=== PATIENT | male | born 1985 | race African-American/Black ===

== ENCOUNTER 2018-03-23 12:39 | Emergency (ER) | payer SELFPAY ==
--- NOTE | 2018-03-23 12:51 | ER Document Report ---
ED Medical Screen (RME) - General Chief Complaint: Abdominal Pain Stated Complaint: ABDOMINAL PAIN Time Seen by Provider: 03/23/18 12:46 Notes: RAPID MEDICAL EVALUATION DISCLOSURE I have seen this patient as part of a Rapid Medical Evaluation and, if applicable, placed any initially appropriate orders. The patient will be seen and fully evaluated, including a full history and physical exam, by a provider ( in Main ED or Fast Track) when a room becomes available. 32-year-old male here with complaints diarrhea nausea lower abdominal pain dysuria. Patient cannot tell me how long this is been going on as he is lethargic and somewhat difficult to arouse. Family report that his friends called them about his issues today. EXAM Suprapubic tenderness No other abdominal tenderness Somewhat lethargic TRAVEL OUTSIDE OF THE [place] IN LAST 30 DAYS: No - Related Data Allergies/Adverse Reactions: penicillin V potassium [From [employer]] Allergy (Mild, Verified 03/23/18 12:42) unsure Sulfa (Sulfonamide Antibiotics) Allergy (Verified 03/23/18 12:42) unsure Past Medical History - Past Medical History Cardiac Medical History: Reports: Hx Hypertension Pulmonary Medical History: Reports: Hx Bronchitis, Hx COPD Musculoskeltal Medical History: Denies Hx Arthritis, Denies Hx Gout Traumatic Medical History: Reports: Hx Fractures - right ankle 2 months ago Past Surgical History: Reports: Hx Kidney (Renal Surgery) - KIDNEY BIOPSY - Immunizations Immunizations up to date: Yes Hx Diphtheria, Pertussis, Tetanus Vaccination: Yes Physical Exam - Vital signs Vitals: Temp Pulse Resp BP Pulse Ox 97.9 F 78 18 152/94 H 100 03/23/18 12:44 03/23/18 12:44 03/23/18 12:44 03/23/18 12:44 03/23/18 12:44 Course - Vital Signs Vital signs: Temp Pulse Resp BP Pulse Ox 97.9 F 78 18 152/94 H 100 03/23/18 12:44 03/23/18 12:44 03/23/18 12:44 03/23/18 12:44 03/23/18 12:44
[2018-03-23] MEDS ORDERED: NORMAL SALINE 1000 ML 1,000 ML IV ONE (14:29)
[2018-03-23 16:01] LABS: ABSOLUTE BASOPHILS # (AUTO) 0.1 10^3/uL (0.0-0.2); ABSOLUTE LYMPHOCYTES (AUTO) 0.9 10^3/uL (0.5-4.7); ABSOLUTE MONOCYTES (AUTO) 0.8 10^3/uL (0.1-1.4); ABSOLUTE NEUT (AUTO) 11.4 10^3/uL (1.7-8.2); BASOPHILS % (AUTO) 0.6 % (0-2); EOSINOPHILS % (AUTO) 0.3 % (0-6); HEMATOCRIT 50.9 % (37.9-51.0); LYMPHOCYTES % (AUTO) 6.9 % (13-45); MEAN CORPUSCULAR HGB CONC 33.4 g/dL (32.0-36.0); MEAN CORPUSCULAR VOLUME 87 fl (80-97); PLATELET COUNT 330 10^3/uL (150-450); RED BLOOD COUNT 5.87 10^6/uL (4.35-5.55); RED CELL DISTRIBUTION WIDTH 14.6 % (11.5-14.0); SEGMENTED NEUTROPHILS % (AUTO) 86.2 % (42-78); TOTAL CELLS COUNTED % (AUTO) 100 %; WHITE BLOOD COUNT 13.3 10^3/uL (4.0-10.5)
[2018-03-23 16:11] LABS: ALANINE AMINOTRANSFERASE 93 U/L (21-72); ALBUMIN 4.2 g/dL (3.5-5.0); ALKALINE PHOSPHATASE 109 U/L (38-126); ANION GAP 14 (5-19); ASPARTATE AMINO TRANSFERASE 76 U/L (17-59); BILIRUBIN,DIRECT 0.4 mg/dL (0.0-0.4); BILIRUBIN,TOTAL 0.5 mg/dL (0.2-1.3); BLOOD UREA NITROGEN 7 mg/dL (7-20); CARBON DIOXIDE 24 mmol/L (22-30); CHLORIDE 107 mmol/L (98-107); GLUCOSE 87 mg/dL (75-110); POTASSIUM 4.5 mmol/L (3.6-5.0); TOTAL PROTEIN 8.4 g/dL (6.3-8.2)
[2018-03-23 16:13] LABS: ALCOHOL < 10 mg/dL (NONE DETECTED)
[2018-03-23 16:20] LABS: APPEARANCE,URINE CLEAR; BILIRUBIN,URINE NEGATIVE (NEGATIVE); COLOR,URINE YELLOW; GLUCOSE, URINE NEGATIVE (NEGATIVE); KETONES,URINE NEGATIVE (NEGATIVE); LEUKOCYTE ESTERASE,URINE NEGATIVE (NEGATIVE); NITRITE,URINE NEGATIVE (NEGATIVE); PROTEIN,URINE 30 mg/dL (NEGATIVE); URINE SPECIFIC GRAVITY 1.009; UROBILINOGEN,URINE NEGATIVE mg/dL (<2.0)
[2018-03-23 16:36] LABS: URINE AMPHETAMINES SCREEN NEGATIVE; URINE BARBITURATES SCREEN NEGATIVE; URINE BENZODIAZEPINES SCREEN UNCONFIRMED POSITIVE; URINE COCAINE SCREEN UNCONFIRMED POSITIVE; URINE MARIJUANA (THC) SCREEN NEGATIVE; URINE METHADONE SCREEN NEGATIVE; URINE PHENCYCLIDINE SCREEN NEGATIVE
--- NOTE | 2018-03-23 17:45 | RADIOLOGY REPORT (SQ) ---
EXAM DESCRIPTION: CT ABD/PELVIS WITH IV ONLY COMPLETED DATE/TIME: 03/23/2018 5:23 pm REASON FOR STUDY: pain , unresponsive. COMPARISON: None. TECHNIQUE: CT scan of the abdomen and pelvis performed using helical scanning technique with dynamic intravenous contrast injection. No oral contrast. Images reviewed with lung, soft tissue, and bone windows. Reconstructed coronal and sagittal MPR images reviewed. Delayed images for evaluation of the urinary system also acquired. All images stored on PACS. All CT scanners at this facility use dose modulation, iterative reconstruction, and/or weight based d osing when appropriate to reduce radiation dose to as low as reasonably achievable (ALARA). [facility]: Dose Right [facility]: CareDose [facility]: Dose Right [facility]: Teradose 4D [facility]: Health Essentials CONTRAST TYPE AND DOSE: 100 mL Isovue 370- low osmolar. RENAL FUNCTION: Creatinine 0.74 RADIATION DOSE: . LIMITATIONS: There is streak artifact from the patient's arms along the body. There is motion artif act. FINDINGS: LOWER CHEST: No consolidation or pleural effusion. LIVER: Normal size. No masses. No dilated ducts. SPLEEN: Normal size. PANCREAS: No significant calcifications. No adjacent inflammation or peripancreatic fluid collections . Pancreatic duct not dilated. GALLBLADDER: No identified stones by CT criteria. No inflammatory changes to suggest cholecystitis. ADRENAL GLANDS: No significant masses or asymmetry. RIGHT KIDNEY AND URETER: There is a 1.4 cm right renal cyst. No significant calcifications. No hy dronephrosis or hydroureter. LEFT KIDNEY AND URETER: No significant calcifications. No hydronephrosis or hydroureter. AORTA AND VESSELS: No abdominal aortic aneurysm. Renal arteries, SMA, celiac without stenosis. RETROPERITONEUM: No retroperitoneal adenopathy, hemorrhage or masses. BOWEL AND PERITONEAL CAVITY: No dilated bowel loops. No free fluid or free air. APPENDIX: Normal. PELVIS: No mass. No free fluid. Partially distended bladder. ABDOMINAL WALL: There is mild diffuse subcutaneous edema. Soft tissue stranding is noted in the righ t upper anterior abdominal wall. BONES: No significant or acute findings. IMPRESSION: Mild diffuse subcutaneous edema. Soft tissue stranding at the right upper anterior abdo russ wall, please correlate with clinical exam/ direct visualization to evaluate for acute infection /inflammation or hematoma. Otherwise,no acute findings in the abdomen or pelvis. TECHNICAL DOCUMENTATION: JOB ID: [id number] AK- Quality ID # [id number]: Final reports with documentation of one or more dose reduction techniques (e.g., Au tomated exposure control, adjustment of the mA and/or kV according to patient size, use of iterative reconstruction technique) 2010 [employer]- All Rights Reserved Reading location - IP/workstation name: [email or web address]
--- NOTE | 2018-03-23 17:59 | ER Document Report ---
ED General - General Chief Complaint: Abdominal Pain Stated Complaint: ABDOMINAL PAIN Time Seen by Provider: 03/23/18 12:46 Mode of Arrival: Ambulatory Information source: Patient, Relative - sisters TRAVEL OUTSIDE OF THE [place] IN LAST 30 DAYS: No - HPI Patient complains to provider of: decreased responsiveness/low abd pain Onset: Yesterday Associated symptoms: Diarrhea Notes: She was brought in here by his sisters via private vehicle. They stated that he lives with friends and the friends called the sisters earlier today to state that the patient was not acting like himself and also was complaining of low abdominal pain. The patient is an IV drug abuser he used heroin last night. He also used cocaine a few nights ago. - Related Data Allergies/Adverse Reactions: penicillin V potassium [From [employer]] Allergy (Mild, Verified 03/23/18 12:42) unsure Sulfa (Sulfonamide Antibiotics) Allergy (Verified 03/23/18 12:42) unsure Past Medical History - Social History Smoking Status: Current Every Day Smoker Frequency of alcohol use: Occasional Drug Abuse: Cocaine, Heroin, Prescription drugs Lives with: Friend Family History: Reviewed & Not Pertinent Patient has suicidal ideation: No Patient has homicidal ideation: No - Past Medical History Cardiac Medical History: Reports: Hx Hypertension Pulmonary Medical History: Reports: Hx Bronchitis, Hx COPD Neurological Medical History: Reports: None Endocrine Medical History: Reports: None Renal/ Medical History: Reports: None. Denies: Hx Peritoneal Dialysis Malignancy Medical History: Reports None GI Medical History: Reports: None Musculoskeltal Medical History: Reports None, Denies Hx Arthritis, Denies Hx Gout Traumatic Medical History: Reports: Hx Fractures - right ankle 2 months ago Past Surgical History: Reports: Hx Kidney (Renal Surgery) - KIDNEY BIOPSY - Immunizations Immunizations up to date: Yes Hx Diphtheria, Pertussis, Tetanus Vaccination: Yes Review of Systems - Review of Systems -: Yes ROS unobtainable due to patient's medical condition Physical Exam - Vital signs Vitals: Temp Pulse Resp BP Pulse Ox 97.9 F 78 18 152/94 H 100 03/23/18 12:44 03/23/18 12:44 03/23/18 12:44 03/23/18 12:44 03/23/18 12:44 - Notes Notes: PHYSICAL EXAMINATION: GENERAL: Decreased responsiveness upon initial assessment. No apparent distress. HEAD: Atraumatic, normocephalic. EYES: Pupils equal round and reactive to light, sclera anicteric, conjunctiva are normal. ENT: Nares patent. Moist mucous membranes. NECK: Normal range of motion, supple without lymphadenopathy LUNGS: Breath sounds clear to auscultation bilaterally and equal. No wheezes rales or rhonchi. HEART: Regular rate and rhythm without murmurs ABDOMEN: Soft, tenderness left lower quadrant, nondistended abdomen. No guarding, no rebound. No masses appreciated. Musculoskeletal: Normal range of motion, no pitting or edema. No cyanosis. NEUROLOGICAL: Cranial nerves grossly intact. Normal speech, normal gait. Normal sensory, motor exams PSYCH: Denies suicidal ideation SKIN: Warm, Dry, normal turgor, no rashes or lesions noted. Course - Re-evaluation Re-evalutation: 03/23/18 17:56 Patient is much more alert now. He does complain of left lower quadrant pain. I did go and reexamine his abdominal wall did not find any erythema contusion or tenderness in the area of the subq edema found on the CAT scan. Patient did ask to please have some food. I am questioning whether the patient injected into his abdominal area. He denies this however. I do not find any breach in the skin, erythema, abscess cellulitis or localized tenderness. Pt does have scarring to RUQ area which correlates to findings on CT scan-he states he had prior infection in the wall of his abdomen. 03/23/18 17:57 Labs- All tests 24 hr 03/23/18 03/23/18 03/23/18 15:40 15:40 15:40 WBC 13.3 H RBC 5.87 H Hgb 17.0 Hct 50.9 MCV 87 MCH 29.0 MCHC 33.4 RDW 14.6 H Plt Count 330 Seg Neutrophils % 86.2 H Lymphocytes % 6.9 L Monocytes % 6.0 Eosinophils % 0.3 Basophils % 0.6 Absolute Neutrophils 11.4 H Absolute Lymphocytes 0.9 Absolute Monocytes 0.8 Absolute Eosinophils 0.0 Absolute Basophils 0.1 Sodium 145.0 Potassium 4.5 Chloride 107 Carbon Dioxide 24 Anion Gap 14 BUN 7 Creatinine 0.74 Est GFR ( Amer) > 60 Est GFR (Non-Af Amer) > 60 Glucose 87 Lactic Acid 1.9 Calcium 10.0 Total Bilirubin 0.5 Direct Bilirubin 0.4 Neonat Total Bilirubin Not Reportable Neonat Direct Bilirubin Not Reportable Neonat Indirect Bili Not Reportable AST 76 H ALT 93 H Alkaline Phosphatase 109 Total Protein 8.4 H Albumin 4.2 Lipase 35.0 Urine Color Urine Appearance Urine pH Ur Specific [place] Urine Protein Urine Glucose (UA) Urine Ketones Urine Blood Urine Nitrite Urine Bilirubin Urine Urobilinogen Ur Leukocyte Esterase Urine WBC (Auto) Urine Mucus (Auto) Urine Ascorbic Acid Urine Opiates Screen Urine Methadone Screen Ur Barbiturates Screen Ur Phencyclidine Scrn Ur Amphetamines Screen U Benzodiazepines Scrn Urine Cocaine Screen U Marijuana (THC) Screen Serum Alcohol < 10 03/23/18 03/23/18 15:57 15:57 WBC RBC Hgb Hct MCV MCH MCHC RDW Plt Count Seg Neutrophils % Lymphocytes % Monocytes % Eosinophils % Basophils % Absolute Neutrophils Absolute Lymphocytes Absolute Monocytes Absolute Eosinophils Absolute Basophils Sodium Potassium Chloride Carbon Dioxide Anion Gap BUN Creatinine Est GFR ( Amer) Est GFR (Non-Af Amer) Glucose Lactic Acid Calcium Total Bilirubin Direct Bilirubin Neonat Total Bilirubin Neonat Direct Bilirubin Neonat Indirect Bili AST ALT Alkaline Phosphatase Total Protein Albumin Lipase Urine Color YELLOW Urine Appearance CLEAR Urine pH 8.0 Ur Specific [place] 1.009 Urine Protein 30 H Urine Glucose (UA) NEGATIVE Urine Ketones NEGATIVE Urine Blood SMALL H Urine Nitrite NEGATIVE Urine Bilirubin NEGATIVE Urine Urobilinogen NEGATIVE Ur Leukocyte Esterase NEGATIVE Urine WBC (Auto) 4 Urine Mucus (Auto) RARE Urine Ascorbic Acid NEGATIVE Urine Opiates Screen UNCONFIRMED POSITIVE Urine Methadone Screen NEGATIVE Ur Barbiturates Screen NEGATIVE Ur Phencyclidine Scrn NEGATIVE Ur Amphetamines Screen NEGATIVE U Benzodiazepines Scrn UNCONFIRMED POSITIVE Urine Cocaine Screen UNCONFIRMED POSITIVE U Marijuana (THC) Screen NEGATIVE Serum Alcohol Abdomen/Pelvis CT 03/23/18 16:35 IMPRESSION: Mild diffuse subcutaneous edema. Soft tissue stranding at the right upper anterior abdominal wall, please correlate with clinical exam/ direct visualization to evaluate for acute infection/inflammation or hematoma. Otherwise,no acute findings in the abdomen or pelvis. 03/23/18 18:32 Patient became more and more weak throughout his stay in the emergency department. At the end he was alert and oriented with no focal deficits. He was tolerating p.o. intake. 03/23/18 18:33 03/23/18 18:36 No diarrhea while in ED - Vital Signs Vital signs: Temp Pulse Resp BP Pulse Ox 97.9 F 78 18 152/94 H 100 03/23/18 12:44 03/23/18 12:44 03/23/18 12:44 03/23/18 12:44 03/23/18 12:44 - Laboratory Result Diagrams: 03/23/18 15:40 03/23/18 15:40 Laboratory results interpreted by me: 03/23/18 03/23/18 03/23/18 15:40 15:40 15:57 WBC 13.3 H RBC 5.87 H RDW 14.6 H Seg Neutrophils % 86.2 H Lymphocytes % 6.9 L Absolute Neutrophils 11.4 H AST 76 H ALT 93 H Total Protein 8.4 H Urine Protein 30 H Urine Blood SMALL H Discharge - Discharge Clinical Impression: Abdominal pain, Polysubstance abuse Condition: Stable Disposition: HOME, SELF-CARE Instructions: Abdominal Pain ([facility]) Additional Instructions: Return to the emergency department if worsening symptoms. Referrals: [facility] [Provider Group] - Follow up in 3-5 days
[2018-03-23 18:49] VITALS: BP 154/97
== END 2018-03-23 18:49 | disposition home or self-care (01) ==
LOC: ER 12:39
DX: R10.9 Unspecified abdominal pain (principal); F19.10 Other psychoactive substance abuse, uncomplicated; R19.7 Diarrhea, unspecified; F17.200 Nicotine dependence, unspecified, uncomplicated; Z88.0 Allergy status to penicillin; Z88.2 Allergy status to sulfonamides
CPT/HCPCS: 99284; 96360; 36415; 87040; 87086; 80307 ×2; 82140; 83690; 85025; 80053; 81001; 83605; 74177; J7030

== ENCOUNTER 2019-04-27 23:02 | Emergency (ER) | payer SELFPAY ==
[2019-04-27 23:26] VITALS: BP 154/93
--- NOTE | 2019-04-27 23:35 | EKG REPORT ---
SEVERITY:- ABNORMAL ECG - SINUS RHYTHM PROBABLE LEFT ATRIAL ABNORMALITY PROBABLE LEFT VENTRICULAR HYPERTROPHY : Confirmed by: Marilyn Thacker MD 27-Apr-2019 23:34:58
== END 2019-04-28 01:08 | disposition left against medical advice (07) ==
LOC: ER 23:02
DX: R07.9 Chest pain, unspecified (principal); R10.9 Unspecified abdominal pain; R11.10 Vomiting, unspecified; Z53.21 Procedure and treatment not carried out due to patient leaving prior to being seen by health care provider
CPT/HCPCS: 93005; 93010

== ENCOUNTER 2019-06-22 13:21 | Emergency (ER) | payer SELFPAY | END 2019-06-22 14:00 | disposition left against medical advice (07) | LOC: ER 13:21 | DX: Z53.21 Procedure and treatment not carried out due to patient leaving prior to being seen by health care provider (principal) ==

== ENCOUNTER → 2019-07-31 | Outpatient (CLI) | payer OTHER ==
[2019-07-31 11:48] LABS: APPEARANCE,URINE CLEAR; BILIRUBIN,URINE NEGATIVE (NEGATIVE); COLOR,URINE YELLOW; GLUCOSE, URINE NEGATIVE (NEGATIVE); KETONES,URINE NEGATIVE (NEGATIVE); LEUKOCYTE ESTERASE,URINE NEGATIVE (NEGATIVE); NITRITE,URINE NEGATIVE (NEGATIVE); PROTEIN,URINE 100 mg/dL (NEGATIVE); URINE SPECIFIC GRAVITY 1.024; UROBILINOGEN,URINE NEGATIVE mg/dL (<2.0)
[2019-07-31 12:04] LABS: ALBUMIN 4.3 g/dL (3.5-5.0); ALKALINE PHOSPHATASE 84 U/L (38-126); ANION GAP 9 (5-19); ASPARTATE AMINO TRANSFERASE 115 U/L (17-59); BILIRUBIN,DIRECT 0.1 mg/dL (0.0-0.4); BILIRUBIN,TOTAL 0.5 mg/dL (0.2-1.3); BLOOD UREA NITROGEN 14 mg/dL (7-20); CALCIUM 9.9 mg/dL (8.4-10.2); CARBON DIOXIDE 30 mmol/L (22-30); CHLORIDE 102 mmol/L (98-107); CHOLESTEROL 156.58 mg/dL (0-200); GLUCOSE 88 mg/dL (75-110); POTASSIUM 4.3 mmol/L (3.6-5.0); TOTAL PROTEIN 8.5 g/dL (6.3-8.2); TRIGLYCERIDES 87 mg/dL (<150); URIC ACID 8.2 mg/dL (3.5-8.5)
[2019-07-31 12:15] LABS: DIRECT LDL 115 mg/dL (<100)
[2019-08-01 07:37] LABS: HEPATITIS C VIRUS AB >11.0 s/co ratio (0.0-0.9); HEPATITS B SURFACE ANTIGEN Negative (Negative)
[2019-08-02 09:22] LABS: HEPATITIS C VIRUS ANTIBODY >11.0 s/co ratio (0.0-0.9)
== END ==
LOC: CCC 10:10
DX: I10 Essential (primary) hypertension (principal)
CPT/HCPCS: 36415; 80053; 80061; 80074; 81001; 83036; 84443; 84550; 86701; 86803; 86804

== ENCOUNTER → 2019-09-03 | Outpatient (CLI) | payer OTHER | LOC: CCC 11:15 | DX: B18.2 Chronic viral hepatitis C (principal) | CPT/HCPCS: 36415; 81270 ==

== ENCOUNTER 2019-09-21 16:21 | Emergency (ER) | payer SELFPAY ==
[2019-09-21 17:02] LABS: HEMOGLOBIN 17.6 g/dL (13.5-17.0); MEAN CORPUSCULAR HEMOGLOBIN 29.9 pg (27.0-33.4); RED BLOOD COUNT 5.87 10^6/uL (4.35-5.55); TOTAL CELLS COUNTED % (AUTO) 100 %; WHITE BLOOD COUNT 6.5 10^3/uL (4.0-10.5)
[2019-09-21 17:09] LABS: ABSOLUTE BASOPHILS # (AUTO) 0.1 10^3/uL (0.0-0.2); ABSOLUTE LYMPHOCYTES (AUTO) 1.2 10^3/uL (0.5-4.7); ABSOLUTE MONOCYTES (AUTO) 0.4 10^3/uL (0.1-1.4); ABSOLUTE NEUT (AUTO) 4.7 10^3/uL (1.7-8.2); BASOPHILS % (AUTO) 0.9 % (0-2); EOSINOPHILS % (AUTO) 0.4 % (0-6); HEMATOCRIT 51.5 % (37.9-51.0); LYMPHOCYTES % (AUTO) 18.4 % (13-45); MEAN CORPUSCULAR HGB CONC 34.1 g/dL (32.0-36.0); MEAN CORPUSCULAR VOLUME 88 fl (80-97); MONOCYTES % (AUTO) 6.8 % (3-13); PLATELET COUNT 220 10^3/uL (150-450); RED CELL DISTRIBUTION WIDTH 14.4 % (11.5-14.0); SEGMENTED NEUTROPHILS % (AUTO) 73.5 % (42-78)
[2019-09-21] MEDS ORDERED: NALOXONE HCL INJ 2 MG/2 ML DISP.SYRIN ONE (17:38)
[2019-09-21 17:44] LABS: ALKALINE PHOSPHATASE 87 U/L (38-126); ANION GAP 14 (5-19); ASPARTATE AMINO TRANSFERASE 70 U/L (17-59); BILIRUBIN,DIRECT 0.3 mg/dL (0.0-0.4); BILIRUBIN,TOTAL 0.7 mg/dL (0.2-1.3); BLOOD UREA NITROGEN 5 mg/dL (7-20); CALCIUM 10.2 mg/dL (8.4-10.2); CARBON DIOXIDE 26 mmol/L (22-30); CHLORIDE 104 mmol/L (98-107); GLUCOSE 156 mg/dL (75-110); TOTAL PROTEIN 9.6 g/dL (6.3-8.2)
[2019-09-21 17:46] LABS: ACETAMINOPHEN < 10 ug/mL (10-30); ALCOHOL < 10 mg/dL (NONE DETECTED); SALICYLATE < 1.0 mg/dL (2.0-20.0)
[2019-09-21 18:25] LABS: APPEARANCE,URINE CLOUDY; BILIRUBIN,URINE SMALL (NEGATIVE); CALCIUM OXALATE CRYSTALS,URINE MODERATE /HPF; COLOR,URINE AMBER; GLUCOSE, URINE NEGATIVE (NEGATIVE); KETONES,URINE TRACE mg/dL (NEGATIVE); LEUKOCYTE ESTERASE,URINE NEGATIVE (NEGATIVE); NITRITE,URINE NEGATIVE (NEGATIVE); PROTEIN,URINE >=500 mg/dL (NEGATIVE); URINE SPECIFIC GRAVITY 1.032
[2019-09-21 18:55] LABS: URINE AMPHETAMINES SCREEN NEGATIVE; URINE BARBITURATES SCREEN NEGATIVE; URINE BENZODIAZEPINES SCREEN NEGATIVE; URINE COCAINE SCREEN NEGATIVE; URINE MARIJUANA (THC) SCREEN NEGATIVE; URINE METHADONE SCREEN NEGATIVE; URINE PHENCYCLIDINE SCREEN NEGATIVE
[2019-09-21] MEDS ORDERED: DIPHENHYDRAMINE HCL 50 MG/ML VIAL IV ONE (19:31)
[2019-09-21] MEDS ORDERED: NORMAL SALINE 1000 ML 1,000 ML IV ONE (20:45)
--- NOTE | 2019-09-21 21:02 | ER Document Report ---
ED General - General Chief Complaint: Overdose Stated Complaint: POSSIBLE OVERDOSE Time Seen by Provider: 09/21/19 16:30 Primary Care Provider: [facility] MONIKA CHERRY [Primary Care Provider] - Follow up as needed Mode of Arrival: Medic Information source: Patient TRAVEL OUTSIDE OF THE [place] IN LAST 30 DAYS: No - HPI Notes: Patient is brought in by ambulance. Patient states that he has been feeling depressed because he is been thinking about the of his father. He states that he went over to [facility] today to get some help with depression. Apparently while he was at [facility] he became unresponsive and had shallow breathing. They called 911. An ambulance arrived and the personnel states that patient was unresponsive with shallow breathing. They gave 2 mg of intranasal Narcan and patient became more awake and talkative. Patient states that he did take an extra 2 or 3 pills out of the medicine cabinet at his house. He states that he does not know what these pills are that they must of belonged to someone else in the house. He states he took them to fall asleep. He states he does not have any thoughts of wanting to hurt himself or other people he is just been feeling depressed. Patient states he used to do IV drugs but is been clean for 6 months. He denies using any IV drugs today. Patient states that he does do Suboxone and took only one Suboxone dose today. Patient denies using any type of benzodiazepines. He states he also takes clonidine and just took 1 of those pills today as well. Patient denies any vomiting or diarrhea recently. He has had no recent trauma. He states he has been having some insomnia. Patient's symptoms today were severe and constant. They appear to be made worse by stress and better without stress. No known radiation of the symptoms - Related Data Allergies/Adverse Reactions: penicillin V potassium [From [employer]] Allergy (Mild, Verified 09/21/19 17:36) unsure Sulfa (Sulfonamide Antibiotics) Allergy (Verified 09/21/19 17:36) unsure Home Medications: lisinopril, hydroxyzine, rantinidine, suboxine, Past Medical History - General Information source: Patient - Social History Smoking Status: Current Every Day Smoker Chew tobacco use (# tins/day): No Frequency of alcohol use: Occasional Drug Abuse: Other - Patient states he has been clean from IV drugs for 6 months.. denies: Cocaine, Methamphetamine Family History: Reviewed & Not Pertinent Patient has suicidal ideation: No Patient has homicidal ideation: No - Past Medical History Cardiac Medical History: Reports: Hx Hypertension Pulmonary Medical History: Reports: Hx Bronchitis, Hx COPD Renal/ Medical History: Denies: Hx Peritoneal Dialysis Musculoskeletal Medical History: Denies Hx Arthritis, Denies Hx Gout Traumatic Medical History: Reports: Hx Fractures - right ankle 2 months ago Past Surgical History: Reports: Hx Kidney (Renal Surgery) - KIDNEY BIOPSY - Immunizations Immunizations up to date: Yes Hx Diphtheria, Pertussis, Tetanus Vaccination: Yes Review of Systems - Review of Systems Constitutional: denies: Chills, Fever Cardiovascular: denies: Chest pain, Palpitations Respiratory: denies: Cough, Short of breath Gastrointestinal: denies: Abdominal pain, Diarrhea, Vomiting -: Yes All other systems reviewed and negative Physical Exam - Vital signs Vitals: Temp 97.6 F 09/21/19 16:21 Interpretation: Tachycardic - General General appearance: Appears well, Alert - HEENT Head: Normocephalic, Atraumatic Eyes: Normal Pupils: PERRL - Respiratory Respiratory status: No respiratory distress Chest status: Nontender Breath sounds: Normal Chest palpation: Normal - Cardiovascular Rhythm: Tachycardia Heart sounds: Normal auscultation Murmur: No - Abdominal Inspection: Normal Distension: No distension Bowel sounds: Normal Tenderness: Nontender Organomegaly: No organomegaly - Back Back: Normal, Nontender - Extremities General upper extremity: Normal inspection, Nontender, Normal color, Normal ROM, Normal temperature General lower extremity: Normal inspection, Nontender, Normal color, Normal ROM, Normal temperature, Normal weight bearing. No: Akshat's sign - Neurological Neuro grossly intact: Yes Cognition: Normal Orientation: AAOx4 [place] Coma Scale Eye Opening: Spontaneous Gem Coma Scale Verbal: Oriented Gem Coma Scale Motor: Obeys Commands [place] Coma Scale Total: 15 Speech: Normal Motor strength normal: LUE, RUE, LLE, RLE Sensory: Normal - Psychological Associated symptoms: Depressed, Unable to sleep - Skin Skin Temperature: Warm Skin Moisture: Dry Skin Color: Normal Course - Re-evaluation Re-evalutation: 09/21/19 21:04 Patient arrives from an outpatient psychiatric facility with a history of being unresponsive at the facility. Patient per EMS personnel responded to Narcan. Patient denies taking any type of opioids for which Narcan would have worked. He does admit to taking "3" pills from the medicine cabinet at his house. He states he took these pills to sleep but does not know what kind of pills they are over they belong to. Patient denies doing any type of IV drugs. Patient has not required any further Narcan while here at the hospital. I did call and discussed the case with [place] poison control who recommends watching the patient for 24 hours. Patient is also been placed on an involuntary commitment because in addition to this episode of a possible overdose he also was apparently cutting himself with a razor per EMS. I believe patient needs psychiatric consultation to best determine appropriate disposition. This will be obtained in the a.m. after patient has been monitored overnight. Patient's laboratories are essentially unremarkable. - Vital Signs Vital signs: Temp Pulse Resp BP Pulse Ox 97.6 F 22 H 133/75 H 98 09/21/19 16:21 09/21/19 17:00 09/21/19 16:25 09/21/19 17:00 - Laboratory Result Diagrams: 09/21/19 16:47 09/21/19 17:00 Laboratory results interpreted by me: 09/21/19 09/21/19 09/21/19 16:47 16:47 17:00 RBC 5.87 H Hgb 17.6 H Hct 51.5 H RDW 14.4 H BUN 5 L Glucose 156 H AST 70 H Total Protein 9.6 H Urine Protein Urine Ketones Urine Blood Urine Bilirubin Urine Urobilinogen Salicylates < 1.0 L Acetaminophen < 10 L 09/21/19 17:50 RBC Hgb Hct RDW BUN Glucose AST Total Protein Urine Protein >=500 H Urine Ketones TRACE H Urine Blood SMALL H Urine Bilirubin SMALL H Urine Urobilinogen 2.0 H Salicylates Acetaminophen Discharge - Discharge Clinical Impression: Depression Qualifiers: Depression Type: major depressive disorder Major depression recurrence: single episode Active/Remission status: currently active Major depression episode severity: severe Psychotic features: without psychotic features Qualified Code(s): F32.2 - Major depressive disorder, single episode, severe without psychotic features Overdose Qualifiers: Encounter type: initial encounter Injury intent: undetermined intent Qualified Code(s): T50.904A - Poisoning by unspecified drugs, medicaments and biological substances, undetermined, initial encounter Condition: Serious Disposition: PSYCH HOSP/UNIT Referrals: [facility] [Primary Care Provider] - Follow up as needed
[2019-09-21] MEDS ORDERED: LORAZEPAM 0.5 MG TABLET PO ONE (22:56)
[2019-09-21] MEDS ORDERED: NICOTINE 21 MG/24 HR PATCH.TD24 TD ONE (22:57)
--- NOTE | 2019-09-22 00:06 | EKG REPORT ---
SEVERITY:- ABNORMAL ECG - SINUS RHYTHM CONSIDER LEFT VENTRICULAR HYPERTROPHY BORDERLINE PROLONGED QT INTERVAL : Confirmed by: Marilyn Thacker MD 22-Sep-2019 00:05:28
[2019-09-22] MEDS ORDERED: LORAZEPAM INJ 2 MG/1 ML VIAL IV ONE (07:38)
--- NOTE | 2019-09-22 10:44 | ER Document Report ---
Doctor's Note Notes: 09/22/19 10:40 Patient's vital signs and previous labs, diagnostic images reviewed. Reviewed mental health notes, nurse's notes and previous providers notes. VSS. Pt is in no distress at this time. Denies any SI or HI. Patient has an elevated lipase, will recheck labs as well as order CT abdomen pelvis due to patient on examination. Patient is in no distress at this time and resting in bed. PHYSICAL EXAMINATION: GENERAL: Well-appearing, well-nourished and in no acute distress. HEAD: Atraumatic, normocephalic. EYES: Pupils equal round extraocular movements intact, conjunctiva are normal. ENT: Nares patent NECK: Normal range of motion LUNGS: No respiratory distress ABD: RUQ tenderness on palpation, bilateral tenderness to flanks on palpation, no guarding, no rebound pain noted. Musculoskeletal: Normal range of motion NEUROLOGICAL: Normal speech, normal gait. PSYCH: Normal mood, normal affect. SKIN: Warm, Dry, normal turgor, no rashes or lesions noted. A/P: Continue monitoring and rec's per . awaiting results of labs/ct abd/pelvis Normal diet
[2019-09-22 11:11] LABS: ABSOLUTE BASOPHILS # (AUTO) 0.1 10^3/uL (0.0-0.2); ABSOLUTE EOSINOPHILS # (AUTO) 0.1 10^3/uL (0.0-0.6); ABSOLUTE LYMPHOCYTES (AUTO) 1.4 10^3/uL (0.5-4.7); ABSOLUTE MONOCYTES (AUTO) 0.6 10^3/uL (0.1-1.4); ABSOLUTE NEUT (AUTO) 5.2 10^3/uL (1.7-8.2); BASOPHILS % (AUTO) 0.7 % (0-2); EOSINOPHILS % (AUTO) 1.5 % (0-6); HEMATOCRIT 46.6 % (37.9-51.0); HEMOGLOBIN 16.1 g/dL (13.5-17.0); LYMPHOCYTES % (AUTO) 19.3 % (13-45); MEAN CORPUSCULAR HEMOGLOBIN 29.9 pg (27.0-33.4); MEAN CORPUSCULAR HGB CONC 34.5 g/dL (32.0-36.0); MEAN CORPUSCULAR VOLUME 87 fl (80-97); MONOCYTES % (AUTO) 7.9 % (3-13); PLATELET COUNT 203 10^3/uL (150-450); RED BLOOD COUNT 5.39 10^6/uL (4.35-5.55); RED CELL DISTRIBUTION WIDTH 14.7 % (11.5-14.0); SEGMENTED NEUTROPHILS % (AUTO) 70.6 % (42-78); TOTAL CELLS COUNTED % (AUTO) 100 %; WHITE BLOOD COUNT 7.4 10^3/uL (4.0-10.5)
[2019-09-22 11:31] LABS: ALBUMIN 4.2 g/dL (3.5-5.0); ALKALINE PHOSPHATASE 79 U/L (38-126); ANION GAP 9 (5-19); ASPARTATE AMINO TRANSFERASE 58 U/L (17-59); BILIRUBIN,DIRECT 0.1 mg/dL (0.0-0.4); BILIRUBIN,TOTAL 0.8 mg/dL (0.2-1.3); BLOOD UREA NITROGEN 6 mg/dL (7-20); CALCIUM 9.6 mg/dL (8.4-10.2); CARBON DIOXIDE 27 mmol/L (22-30); CHLORIDE 106 mmol/L (98-107); GLUCOSE 100 mg/dL (75-110); POTASSIUM 4.2 mmol/L (3.6-5.0); TOTAL PROTEIN 8.5 g/dL (6.3-8.2)
--- NOTE | 2019-09-22 11:45 | RADIOLOGY REPORT (SQ) ---
EXAM DESCRIPTION: CT ABD/PELVIS WITH IV ONLY COMPLETED DATE/TIME: 09/22/2019 11:15 am REASON FOR STUDY: RUQ abd pain, elevated lipase, vomiting COMPARISON: None. TECHNIQUE: CT scan of the abdomen and pelvis performed using helical scanning technique with dynamic intravenous contrast injection. No oral contrast. Images reviewed with lung, soft tissue, and bone windows. Reconstructed coronal and sagittal MPR images reviewed. Delayed images for evaluation of the urinary system also acquired. All images stored on PACS. All CT scanners at this facility use dose modulation, iterative reconstruction, and/or weight based d osing when appropriate to reduce radiation dose to as low as reasonably achievable (ALARA). [facility]: Dose Right [facility]: CareDose [facility]: Dose Right [facility]: Teradose 4D [facility]: [employer] CONTRAST TYPE AND DOSE: Contrast/concentration: Isovue 350.00 mg/ml; Total Contrast Delivered: 47.5 ml; Total Saline Delivered: 22.0 ml RENAL FUNCTION: Creatinine 0.97 milligrams/deciliter. RADIATION DOSE: CT Rad equipment meets quality standard of care and radiation dose reduction techniq ues were employed. CTDIvol: 13.9 - 18.0 mGy. DLP: 1960 mGy-cm.. LIMITATIONS: Limited evaluation due to timing of contrast bolus. FINDINGS: LOWER CHEST: Bibasilar atelectasis. No cardiomegaly. No pericardial or pleural effusion LIVER: Evaluation is limited due to the excretory phase of contrast enhancement. The liver morpholog y is non cirrhotic. SPLEEN: No splenomegaly. PANCREAS: No gross acute abnormality of the pancreas. GALLBLADDER: The gallbladder is contracted. ADRENAL GLANDS: No abnormality that is apparent on CT RIGHT KIDNEY AND URETER: Evaluation is limited due to the expiratory phase of contrast enhancement. There is a 1.5 x 1.3 cm parapelvic cyst on image 41 of series 3. There is no hydronephrosis or hydro ureter ; there is contrast within the right ureter down to the ureterovesicular junction. LEFT KIDNEY AND URETER: Evaluation is limited due to the excretory phase of contrast enhancement. Th ere is no hydronephrosis or hydroureter. AORTA AND VESSELS: No aneurysmal dilatation of the abdominal aorta. There is a variant retroaortic l eft renal vein. RETROPERITONEUM: No retroperitoneal adenopathy, hemorrhage or mass. BOWEL AND PERITONEAL CAVITY: No evidence of bowel obstruction, bowel wall thickening, or pericolonic/ perienteric inflammation. No mesenteric adenopathy, free intraperitoneal fluid or mesenteric/ perit santana mass. APPENDIX: Normal. PELVIS: The urinary bladder is distended and normal in appearance. The prostate gland is normal in s ize. There is no pelvic adenopathy, free fluid or mass. ABDOMINAL WALL: No masses or hernias. BONES: No acute findings. OTHER: No other finding. IMPRESSION: Due to a malfunction of the injector the images were acquired in the excretory phase of contrast enhancement. There is no acute intra-abdominal abnormality. TECHNICAL DOCUMENTATION: JOB ID: [id number] Quality ID # [id number]: Final reports with documentation of one or more dose reduction techniques (e.g., Au tomated exposure control, adjustment of the mA and/or kV according to patient size, use of iterative reconstruction technique) 2010 [employer]- All Rights Reserved Reading location - IP/workstation name: [email or web address]
--- NOTE | 2019-09-22 14:47 | ER Document Report ---
Doctor's Note Notes: 09/22/19 14:46 34-year-old male with possible overdose on Suboxone no other medications at home. Patient denies any and all suicidal ideations. Patient has a group appointment tonight with his treatment team. Mom is very comfortable with the patient going home. History of drug abuse supposedly clean for the last 6 lizette hs. Patient denies any and all suicidal ideations at this time. Behavioral health team is seen and assessed the patient do not believe that the patient is a threat to himself or others at this time. Patient will be discharged home with strict return precautions and follow-up and to the care of his mother. Mother is comfortable with this plan.
[2019-09-22 15:32] VITALS: BP 147/97
--- NOTE | 2019-09-24 09:52 | EKG REPORT ---
SEVERITY:- ABNORMAL ECG - SINUS TACHYCARDIA LEFT ATRIAL ABNORMALITY PROBABLE LEFT VENTRICULAR HYPERTROPHY : Confirmed by: Marilyn Thacker MD 24-Sep-2019 09:52:05
== END 2019-09-22 15:30 | disposition home or self-care (01) ==
LOC: ER 16:21
DX: T50.904A Poisoning by unspecified drugs, medicaments and biological substances, undetermined, initial encounter (principal); F19.20 Other psychoactive substance dependence, uncomplicated; F32.2 Major depressive disorder, single episode, severe without psychotic features; F17.200 Nicotine dependence, unspecified, uncomplicated; Z79.899 Other long term (current) drug therapy; I10 Essential (primary) hypertension; J44.9 Chronic obstructive pulmonary disease, unspecified
CPT/HCPCS: 93005; 99285; 96361; 96374; 96375; 36415; 80307 ×4; 83690; 83735; 85025; 80053; 81001; 74177; 93010; J1200; J2060; J7030

== ENCOUNTER 2019-09-23 09:22 | Emergency (ER) | payer SELFPAY ==
--- NOTE | 2019-09-23 10:13 | ER Document Report ---
ED Psych Disorder / Suicide - General Chief Complaint: Laceration Stated Complaint: PSYCH/LACERATION Time Seen by Provider: 09/23/19 10:00 [facility]: [facility] [Primary [facility] Provider] - Follow up as needed Mode of Arrival: Ambulatory Information source: Patient, Relative - Asim Notes: Patient is a 34-year-old male presenting to the emergency department chief complaint of confusion, self-inflicted laceration, and aggressive behavior. Cassi bolaños's niece is with him states that he left the house this morning and when he came back he seemed to be under the influence of some type of mind altering substance. She states that he was very angry and started cutting himself. Patient has extensive psychiatric history and was recently in this emergency department and sent to [facility] for re-lab and detox. TRAVEL OUTSIDE OF THE [place].S[place] IN LAST 30 DAYS: No - Related Data Allergies/Adverse Reactions: penicillin V potassium [From Pen-Vee K] Allergy (Mild, Verified 09/21/19 17:36) unsure Sulfa (Sulfonamide Antibiotics) Allergy (Verified 09/21/19 17:36) unsure Past Medical History - General Information source: Patient - Social History Smoking Status: Current Every Day Smoker Chew tobacco use (# tins/day): No Frequency of alcohol use: Social Drug Abuse: Methamphetamine Family History: Reviewed & Not Pertinent Patient has suicidal ideation: Yes Patient has homicidal ideation: No - Past Medical History Cardiac Medical History: Reports: Hx Hypertension Pulmonary Medical History: Reports: Hx Bronchitis, Hx COPD Renal/ Medical History: Denies: Hx Peritoneal Dialysis Musculoskeletal Medical History: Denies Hx Arthritis, Denies Hx Gout Traumatic Medical History: Reports: Hx Fractures - right ankle 2 months ago Surgical Hx: Negative Past Surgical History: Reports: Hx Kidney (Renal Surgery) - KIDNEY BIOPSY - Immunizations Immunizations up to date: Yes Hx Diphtheria, Pertussis, Tetanus Vaccination: Yes Review of Systems - Review of Systems Constitutional: No symptoms reported EENT: No symptoms reported Cardiovascular: No symptoms reported Respiratory: No symptoms reported Gastrointestinal: No symptoms reported Genitourinary: No symptoms reported Male Genitourinary: No symptoms reported Musculoskeletal: No symptoms reported Skin: No symptoms reported Hematologic/Lymphatic: No symptoms reported Neurological/Psychological: See HPI Physical Exam - Vital signs Vitals: Temp Pulse Resp BP Pulse Ox 98.9 F 93 20 175/98 H 97 09/23/19 09:25 09/23/19 09:25 09/23/19 09:25 09/23/19 09:25 09/23/19 09:25 - Notes Notes: PHYSICAL EXAMINATION: GENERAL: Well-appearing, well-nourished and in no acute distress. HEAD: Atraumatic, normocephalic. EYES: Pupils equal round and reactive to light, extraocular movements intact, sclera anicteric, conjunctiva are normal. ENT: Nares patent, oropharynx clear without exudates. Moist mucous membranes. NECK: Normal range of motion, supple without lymphadenopathy LUNGS: Breath sounds clear to auscultation bilaterally and equal. No wheezes rales or rhonchi. HEART: Regular rate and rhythm without murmurs ABDOMEN: Soft, nontender, nondistended abdomen. No guarding, no rebound. No masses appreciated. Musculoskeletal: Normal range of motion, no pitting or edema. No cyanosis. NEUROLOGICAL: Cranial nerves grossly intact. Normal speech, normal gait. Normal sensory, motor exams PSYCH: Bizarre affect. SKIN: 2 cm jagged laceration noted to right wrist, no active bleeding noted. Course - Re-evaluation Re-evalutation: Patient cleared medically. Labs as recorded. Patient has been calm and cooperative today. EKG shows a sinus rhythm, rate of 97, QTc 463, no ST segment elevations or depressions. Awaiting psych recommendations. 09/23/19 19:36 Patient has become very agitated, patient wants to leave, security is at bedside, my attending physician, Dr. Ariza came to the bedside and evaluated the patient, orders placed for medications. - Vital Signs Vital signs: Temp Pulse Resp BP Pulse Ox 98.0 F 93 16 162/98 H 99 09/23/19 19:21 09/23/19 19:21 09/23/19 19:21 09/23/19 19:21 09/23/19 19:21 - Laboratory Result Diagrams: 09/23/19 10:40 09/23/19 10:40 Laboratory results interpreted by me: 09/23/19 09/23/19 09/23/19 10:23 10:40 10:40 RBC 5.64 H RDW 14.7 H BUN 6 L Total Protein 9.7 H Urine Protein 100 H Urine Blood MODERATE H Urine Urobilinogen 2.0 H Salicylates < 1.0 L Acetaminophen < 10 L Procedures - Laceration/Wound Repair Left wrist Wound length (cm): 2 Wound's Depth, Shape: Superficial Laceration pre-procedure: Sterile PPE donned Anesthetic type: 1% Lidocaine Wound explored: Clean Wound Debrided: Minimal Wound Repaired With: Sutures Suture Size/Type: 4:0 Layer Closure?: No Post-procedure wound care: Sterile dressing applied Post-procedure NV exam normal: Yes Complications: No Discharge - Discharge Clinical Impression: Agitated Condition: Fair Disposition: PSYCH HOSP/UNIT [facility]errals: [facility] [Primary Care Provider] - Follow up as needed
[2019-09-23] MEDS ORDERED: LIDOCAINE 1% INJ-PF (10 MG/ML) 30 ML SDV INJ ONE (10:24)
[2019-09-23] MEDS: OLANZAPINE 5 MG TABLET PO SCH ×2 (10:51→17:22)
[2019-09-23] MEDS: BENZTROPINE MESYLATE 1 MG TABLET PO SCH (10:52)
[2019-09-23 10:53] LABS: APPEARANCE,URINE SLIGHTLY-CLOUDY; BILIRUBIN,URINE NEGATIVE (NEGATIVE); COLOR,URINE YELLOW; GLUCOSE, URINE NEGATIVE (NEGATIVE); KETONES,URINE NEGATIVE (NEGATIVE); LEUKOCYTE ESTERASE,URINE NEGATIVE (NEGATIVE); NITRITE,URINE NEGATIVE (NEGATIVE); PROTEIN,URINE 100 mg/dL (NEGATIVE); URINE SPECIFIC GRAVITY 1.013
[2019-09-23 11:08] LABS: ABSOLUTE BASOPHILS # (AUTO) 0.1 10^3/uL (0.0-0.2); ABSOLUTE EOSINOPHILS # (AUTO) 0.1 10^3/uL (0.0-0.6); ABSOLUTE LYMPHOCYTES (AUTO) 1.9 10^3/uL (0.5-4.7); ABSOLUTE MONOCYTES (AUTO) 0.6 10^3/uL (0.1-1.4); ABSOLUTE NEUT (AUTO) 6.6 10^3/uL (1.7-8.2); BASOPHILS % (AUTO) 0.9 % (0-2); EOSINOPHILS % (AUTO) 0.9 % (0-6); LYMPHOCYTES % (AUTO) 20.2 % (13-45); MEAN CORPUSCULAR HEMOGLOBIN 30.1 pg (27.0-33.4); MEAN CORPUSCULAR HGB CONC 34.7 g/dL (32.0-36.0); MEAN CORPUSCULAR VOLUME 87 fl (80-97); MONOCYTES % (AUTO) 6.6 % (3-13); PLATELET COUNT 253 10^3/uL (150-450); RED BLOOD COUNT 5.64 10^6/uL (4.35-5.55); RED CELL DISTRIBUTION WIDTH 14.7 % (11.5-14.0); SEGMENTED NEUTROPHILS % (AUTO) 71.4 % (42-78); TOTAL CELLS COUNTED % (AUTO) 100 %; WHITE BLOOD COUNT 9.2 10^3/uL (4.0-10.5)
[2019-09-23 11:16] LABS: URINE AMPHETAMINES SCREEN NEGATIVE; URINE BARBITURATES SCREEN NEGATIVE; URINE BENZODIAZEPINES SCREEN NEGATIVE; URINE COCAINE SCREEN NEGATIVE; URINE MARIJUANA (THC) SCREEN NEGATIVE; URINE METHADONE SCREEN NEGATIVE; URINE PHENCYCLIDINE SCREEN NEGATIVE
[2019-09-23 11:35] LABS: ACETAMINOPHEN < 10 ug/mL (10-30); ALBUMIN 4.9 g/dL (3.5-5.0); ALCOHOL < 10 mg/dL (NONE DETECTED); ALKALINE PHOSPHATASE 83 U/L (38-126); ANION GAP 14 (5-19); ASPARTATE AMINO TRANSFERASE 58 U/L (17-59); BILIRUBIN,DIRECT 0.3 mg/dL (0.0-0.4); BILIRUBIN,TOTAL 0.7 mg/dL (0.2-1.3); BLOOD UREA NITROGEN 6 mg/dL (7-20); CALCIUM 10.2 mg/dL (8.4-10.2); CARBON DIOXIDE 25 mmol/L (22-30); CHLORIDE 106 mmol/L (98-107); GLUCOSE 96 mg/dL (75-110); POTASSIUM 3.8 mmol/L (3.6-5.0); SALICYLATE < 1.0 mg/dL (2.0-20.0); TOTAL PROTEIN 9.7 g/dL (6.3-8.2)
--- NOTE | 2019-09-23 13:16 | PSYCHOLOGICAL NOTE ---
Psych Note - Psych Note Date seen by psych provider: 09/23/19 Time seen by psych provider: 12:30 Psych Note: Reason for consult: SI Patient is a 34 year old male who presents to ED via POV. Patient was seen in the ED yesterday for same concerns. Patients niece states that patient went to the store at approximately 06:00 to get cigarettes and returned to the home under the influence with a laceration on his wrist and endorsed suicidal ideation via shooting himself in the head with a BB gun. Patient has a history of polysubstance use and struggles with uncomplicated grief due to the of his father. Patient presents to clinician under the influence of a substance as evidenced by patients slurred speech and pinpoint pupils. Upon entering the room, clinician observed blood on the patients linens. Patient denies suicidal and homicidal ideations. Patient denies substance use. Patient verbalized a belief his family is making a big deal out of nothing. Patient states wound on wrist is from the other day and not recent. Patient oriented clinicians attention to wound on wrist and asked for assistance due to it bleeding out of the bandage. Patient denies issues or concerns. Clinician stopped by nurses station after patients evaluation to request clean linen. Nursing staff informed clinician that patient was observed picking at wound to make it bleed, and then wiping blood on linens "for attention." Nurse stated she had to wrap the wound to prevent patient from continuing to pick at the wound. Patient is alert and oriented to person, place, time and circumstance. Mood is elevated with congruent affect as evidenced by over-exaggerated smiling, laughing and engaging with clinician. Patient denies suicidal and homicidal ideation. Patient denies auditory and visual hallucinations. Delusions are absent and behavior is congruent with an intact reality based presentation (i.e. organized and linear thought processes). There is no observed behavior that suggests patient is responding to internal stimuli. Eye contact is good. Conversational speech is within normal rate, tone, and prosody. Intellectual ability appears to be within average range. Attention and concentration are poor. Insight, judgment, and impulse control are poor. Diagnosis: Per history, Depression Polysubstance Use Disorder Medication recommendations per [facility] contracted psychiatrist Dr. Kieran MENA is as follows: Add Zyprexa 5MG, twice per day Add Cogentin 1MG, daily Impression/Plan: Patient is NOT cleared from acute psychiatric services. Patient DOES meet IVC criteria per ID GS 122C. Patient is under 24hr IVC petition. Pat ient denies suicidal and homicidal ideations. Patient denies auditory and visual hallucinations. Patient has a history of polysubstance use disorder. Patient historically declines substance abuse treatment referrals/options. Plan is to stabilize and reevaluate. Dr. Espinoza was consulted on the care and management of this patient; attending physician is in agreement with recommendations and disposition.
[2019-09-23] MEDS ORDERED: LORAZEPAM INJ 2 MG/1 ML VIAL IM ONE (19:36)
[2019-09-23] MEDS ORDERED: HALOPERIDOL LACTATE INJ 5 MG/1 ML VIAL IM ONE (19:36)
[2019-09-23] MEDS ORDERED: DIPHENHYDRAMINE HCL 50 MG/ML VIAL IM ONE (19:37)
--- NOTE | 2019-09-23 19:40 | ER Document Report ---
HPI - HPI Time Seen by Provider: 09/23/19 10:00 Pain Level: 1 - CONSTITUTIONAL Constitutional: DENIES: Fever, Chills - EENT EENT: DENIES: Sore Throat - NEURO Neurology: DENIES: Headache - CARDIOVASCULAR Cardiovascular: DENIES: Chest pain - GASTROINTESTINAL Gastrointestinal: DENIES: Abdominal Pain - URINARY Urinary: DENIES: Dysuria - REPRODUCTIVE Reproductive: DENIES: : Past Medical History - General Information source: Patient, Relative - Neice - Social History Smoking Status: Current Every Day Smoker Chew tobacco use (# tins/day): No Frequency of alcohol use: Social Family History: Reviewed & Not Pertinent Patient has suicidal ideation: Yes Patient has homicidal ideation: No - Past Medical History Cardiac Medical History: Reports: Hx Hypertension Pulmonary Medical History: Reports: Hx Bronchitis, Hx COPD Renal/ Medical History: Denies: Hx Peritoneal Dialysis Musculoskeletal Medical History: Denies Hx Arthritis, Denies Hx Gout Traumatic Medical History: Reports: Hx Fractures - right ankle 2 months ago Past Surgical History: Reports: Hx Kidney (Renal Surgery) - KIDNEY BIOPSY - Immunizations Immunizations up to date: Yes Hx Diphtheria, Pertussis, Tetanus Vaccination: Yes Vertical Provider Document - INFECTION CONTROL TRAVEL OUTSIDE OF THE [place]. IN LAST 30 DAYS: No Course - Re-evaluation Re-evalutation: 09/23/19 19:38 Asked to see pt due to agitation. He is standing in hallway and upset. Not able to be verbally redirected. Will medicate. - Vital Signs Vital signs: Temp Pulse Resp BP Pulse Ox 98.5 F 91 20 153/93 H 97 09/23/19 11:25 09/23/19 11:25 09/23/19 11:25 09/23/19 11:25 09/23/19 11:25 - Laboratory Result Diagrams: 09/23/19 10:40 09/23/19 10:40 Laboratory results interpreted by me: 09/23/19 09/23/19 09/23/19 10:23 10:40 10:40 RBC 5.64 H RDW 14.7 H BUN 6 L Total Protein 9.7 H Urine Protein 100 H Urine Blood MODERATE H Urine Urobilinogen 2.0 H Salicylates < 1.0 L Acetaminophen < 10 L Discharge - Discharge Clinical Impression: Agitated Condition: Fair Disposition: PSYCH HOSP/UNIT [facility]errals: [facility] [Primary Care Provider] - Follow up as needed
[2019-09-24] MEDS: OLANZAPINE 5 MG TABLET PO SCH ×2 (09:46→17:59)
[2019-09-24] MEDS: BENZTROPINE MESYLATE 1 MG TABLET PO SCH (09:46)
--- NOTE | 2019-09-24 17:44 | ER Document Report ---
Doctor's Note Notes: 09/24/19 17:23 Patient's vital signs and previous labs, diagnostic images reviewed. Reviewed mental health notes, nurse's notes and previous providers notes. VSS. Pt is in no distress at this time. Denies any SI or HI. Health has been at bedside and feels that patient is appropriate for discharge. See mental health note for further explanation of mental status General: A&Ox3. Answers questions appropriately. Heart: RRR Lungs: CTAB Psych: slightly anxious skin: 2 cm jagged laceration to right wrist, well-healing, no erythema induration or warmth to touch. No surrounding erythema A/P: discharged home with mental health follow up. Normal diet 09/24/19 18:27
[2019-09-24 19:13] VITALS: BP 168/96
== END 2019-09-24 19:13 | disposition home or self-care (01) ==
LOC: ER 09:22
PROC: 0HQEXZZ Repair Left Lower Arm Skin, External Approach (ICD-10-PCS; principal; 2019-09-23)
DX: S61.512A Laceration without foreign body of left wrist, initial encounter (principal); R41.0 Disorientation, unspecified; X78.9XXA Intentional self-harm by unspecified sharp object, initial encounter; J44.9 Chronic obstructive pulmonary disease, unspecified; I10 Essential (primary) hypertension; F17.200 Nicotine dependence, unspecified, uncomplicated
CPT/HCPCS: 36415; 80307 ×4; 85025; 80053; 81001; 12001; J1200; J1630; J3490; J2060

== ENCOUNTER 2020-02-18 14:44 | Emergency (ER) | payer SELFPAY ==
[2020-02-18 15:53] LABS: ABSOLUTE BASOPHILS # (AUTO) 0.1 10^3/uL (0.0-0.2); ABSOLUTE EOSINOPHILS # (AUTO) 0.2 10^3/uL (0.0-0.6); ABSOLUTE LYMPHOCYTES (AUTO) 3.6 10^3/uL (0.5-4.7); ABSOLUTE MONOCYTES (AUTO) 0.8 10^3/uL (0.1-1.4); ABSOLUTE NEUT (AUTO) 3.7 10^3/uL (1.7-8.2); BASOPHILS % (AUTO) 0.8 % (0-2); EOSINOPHILS % (AUTO) 2.9 % (0-6); HEMATOCRIT 47.4 % (37.9-51.0); HEMOGLOBIN 16.5 g/dL (13.5-17.0); LYMPHOCYTES % (AUTO) 42.7 % (13-45); MEAN CORPUSCULAR HEMOGLOBIN 31.1 pg (27.0-33.4); MEAN CORPUSCULAR HGB CONC 34.9 g/dL (32.0-36.0); MEAN CORPUSCULAR VOLUME 89 fl (80-97); MONOCYTES % (AUTO) 9.4 % (3-13); PLATELET COUNT 263 10^3/uL (150-450); RED BLOOD COUNT 5.31 10^6/uL (4.35-5.55); RED CELL DISTRIBUTION WIDTH 13.7 % (11.5-14.0); SEGMENTED NEUTROPHILS % (AUTO) 44.2 % (42-78); TOTAL CELLS COUNTED % (AUTO) 100 %; WHITE BLOOD COUNT 8.4 10^3/uL (4.0-10.5)
[2020-02-18] MEDS ORDERED: NORMAL SALINE 1000 ML 1,000 ML IV ONE (15:54)
--- NOTE | 2020-02-18 15:54 | ER Document Report ---
ED General - General Chief Complaint: Altered Mental Status Stated Complaint: UNRESPONSIVE Time Seen by Provider: 02/18/20 15:31 Primary Care Provider: [facility] [Primary Care Provider] - Follow up as needed TRAVEL OUTSIDE OF THE [place] IN LAST 30 DAYS: No - HPI Notes: Patient is a 34-year-old male who presents to the emergency department for evaluation. He is not a very forthcoming historian. He eventually admits that he snorted some heroin. He had been clean for some time. He is on Suboxone, states he did not take that today. He was found unresponsive per EMS. Patient denies any pain. - Related Data Allergies/Adverse Reactions: penicillin V potassium [From Pen-Vee K] Allergy (Mild, Verified 09/21/19 17:36) unsure Sulfa (Sulfonamide Antibiotics) Allergy (Verified 09/21/19 17:36) unsure Home Medications: Clonidine. lisinopril. Suboxone. Invega. Risperdal. omeprazole Past Medical History - General Information source: Patient - Social History Smoking Status: Former Smoker Chew tobacco use (# tins/day): No Drug Abuse: Heroin Family History: Reviewed & Not Pertinent Patient has suicidal ideation: No Patient has homicidal ideation: No - Past Medical History Cardiac Medical History: Reports: Hx Hypertension Pulmonary Medical History: Reports: Hx Bronchitis, Hx COPD Renal/ Medical History: Denies: Hx Peritoneal Dialysis Musculoskeletal Medical History: Denies Hx Arthritis, Denies Hx Gout Psychiatric Medical History: Reports: Hx Bipolar Disorder, Hx Schizoaffective Disorder Traumatic Medical History: Reports: Hx Fractures - right ankle 2 months ago Past Surgical History: Reports: Hx Kidney (Renal Surgery) - KIDNEY BIOPSY - Immunizations Immunizations up to date: Yes Hx Diphtheria, Pertussis, Tetanus Vaccination: Yes Review of Systems - Review of Systems Constitutional: See HPI Neurological/Psychological: See HPI -: Yes All other systems reviewed and negative Physical Exam - Vital signs Vitals: Temp Pulse Resp BP Pulse Ox 99.2 F 128 H 20 170/91 H 90 L 02/18/20 14:51 02/18/20 14:51 02/18/20 14:51 02/18/20 14:51 02/18/20 14:51 - Notes Notes: Vital signs reviewed, please refer to chart. Head is normocephalic, atraumatic. Pupils are pinpoint but reactive. Neck is supple without meningismus. Heart is regular rate and rhythm. Lungs are clear to auscultation bilaterally. Abdomen is soft, nontender, normoactive bowel sounds throughout. Extremities without cyanosis, clubbing. Posterior calves are nontender. Peripheral pulses are equal. Skin is warm and dry. Patient is awake, alert, neurological exam is nonfocal. GCS 15. Course - Re-evaluation Re-evalutation: 02/18/20 15:57 Patient was reluctant to admit his episode was secondary to heroin. He eventually did admit this to me. Because of this I will check for other drugs of abuse, salicylates, acetaminophen. He is tachycardic so IV fluids are ordered. Patient is stable at this time, we will continue to monitor. 02/18/20 19:53 Patient presents to the emergency department for evaluation after overdose. He is remained stable here. His pupils have improved in size. He is awake and jess rt. He eventually admits to his heroin as well as cocaine use. He is stable. He is able to call a family member to come get him. His work appears unremarkable besides a drug screen. He is to follow-up with primary care. He is advised he needs to quit abusing drugs. He is not interested in rehab at this time. He is to follow-up with primary care, return to the emergency department worsening or new concerning symptoms of any sort. - Vital Signs Vital signs: Temp Pulse Resp BP Pulse Ox 98.9 F 128 H 15 166/106 H 97 02/18/20 19:00 02/18/20 14:51 02/18/20 18:01 02/18/20 18:01 02/18/20 18:01 - Laboratory Result Diagrams: 02/18/20 14:55 02/18/20 14:55 Laboratory results interpreted by me: 02/18/20 02/18/20 14:55 17:18 Potassium 3.5 L Glucose 117 H AST 63 H ALT 61 H Urine Protein 100 H Urine Blood SMALL H Urine Urobilinogen 2.0 H Salicylates < 1.0 L Acetaminophen < 10 L - EKG Interpretation by Me Additional EKG results interpreted by me: 02/18/20 19:56 Sinus tachycardia with a rate of 105 bpm. Normal axis and intervals. Findings consistent with LVH. Elevated ST segments in the anterior, as well as elevated J-point, consistent with LVH changes versus early repolarization. Discharge - Discharge Clinical Impression: Polysubstance abuse Accidental heroin overdose Qualifiers: Encounter type: initial encounter Qualified Code(s): T40.1X1A - Poisoning by heroin, accidental (unintentional), initial encounter Condition: Stable Disposition: HOME, SELF-CARE Instructions: Narcotic Abuse ([facility]) Additional Instructions: Please consider outpatient follow-up with therapy and treatment for substance abuse. Follow-up with primary care next week. Return to the emergency department with worsening or new concerning symptoms of any sort. [facility]errals: [facility] [Primary Care Provider] - Follow up as needed
[2020-02-18 16:00] LABS: ALBUMIN 3.8 g/dL (3.5-5.0); ALKALINE PHOSPHATASE 81 U/L (38-126); ANION GAP 7 (5-19); ASPARTATE AMINO TRANSFERASE 63 U/L (17-59); BILIRUBIN,TOTAL 0.5 mg/dL (0.2-1.3); BLOOD UREA NITROGEN 9 mg/dL (7-20); CALCIUM 9.2 mg/dL (8.4-10.2); CARBON DIOXIDE 26 mmol/L (22-30); CHLORIDE 107 mmol/L (98-107); GLUCOSE 117 mg/dL (75-110); POTASSIUM 3.5 mmol/L (3.6-5.0)
[2020-02-18 16:02] LABS: ACETAMINOPHEN < 10 ug/mL (10-30); ALCOHOL < 10 mg/dL (NONE DETECTED); SALICYLATE < 1.0 mg/dL (2.0-20.0)
[2020-02-18 17:57] LABS: APPEARANCE,URINE SLIGHTLY-CLOUDY; BILIRUBIN,URINE NEGATIVE (NEGATIVE); COLOR,URINE YELLOW; GLUCOSE, URINE NEGATIVE (NEGATIVE); KETONES,URINE NEGATIVE (NEGATIVE); LEUKOCYTE ESTERASE,URINE NEGATIVE (NEGATIVE); NITRITE,URINE NEGATIVE (NEGATIVE); PROTEIN,URINE 100 mg/dL (NEGATIVE)
[2020-02-18 18:00] LABS: URINE AMPHETAMINES SCREEN NEGATIVE; URINE BARBITURATES SCREEN NEGATIVE; URINE BENZODIAZEPINES SCREEN NEGATIVE; URINE MARIJUANA (THC) SCREEN NEGATIVE; URINE METHADONE SCREEN NEGATIVE; URINE PHENCYCLIDINE SCREEN NEGATIVE
[2020-02-18 18:02] LABS: URINE COCAINE SCREEN UNCONFIRMED POSITIVE
[2020-02-18 19:57] VITALS: BP 160/109
--- NOTE | 2020-02-18 21:25 | EKG REPORT ---
SEVERITY:- ABNORMAL ECG - SINUS TACHYCARDIA KARLI, CONSIDER BIATRIAL ABNORMALITIES LEFT VENTRICULAR HYPERTROPHY ANTERIOR ST ELEVATION, PROBABLY DUE TO LVH : Confirmed by: Marilyn Thacker MD 18-Feb-2020 21:23:56
== END 2020-02-18 20:15 | disposition home or self-care (01) ==
LOC: ER 14:44
DX: T40.1X1A Poisoning by heroin, accidental (unintentional), initial encounter (principal); F19.10 Other psychoactive substance abuse, uncomplicated; R41.82 Altered mental status, unspecified; F11.10 Opioid abuse, uncomplicated; Z79.899 Other long term (current) drug therapy; Z88.0 Allergy status to penicillin; Z88.2 Allergy status to sulfonamides; Z87.891 Personal history of nicotine dependence; I10 Essential (primary) hypertension; J44.9 Chronic obstructive pulmonary disease, unspecified
CPT/HCPCS: 93005; 99285; 96360; 36415; 80307 ×4; 85025; 80053; 81001; 93010; J7030

== ENCOUNTER 2020-10-19 12:01 | Emergency (ER) | payer SELFPAY ==
[2020-10-19] MEDS ORDERED: ONDANSETRON 4 MG TAB.RAPDIS PO ONE (12:16)
[2020-10-19] MEDS ORDERED: NORMAL SALINE 1000 ML 1,000 ML IV ONE ×2 (12:16→14:04)
--- NOTE | 2020-10-19 12:20 | ER Document Report ---
ED Medical Screen (RME) - General Chief Complaint: High Blood Pressure Stated Complaint: HIGH BLOOD PRESSURE Time Seen by Provider: 10/19/20 12:13 Primary [facility]: [facility] [[facility]] - Follow up as needed Information source: Parent Notes: 35-year-old male presented to ED for complaint of nausea and vomiting x3 days. He states he also has elevated blood pressure. He states he is not on any blood pressure medicine because he has not [facility] a [facility]. He states he does smoke a pack a day does not drink more than once or twice a year but has been a heroin addict and has not had any in about a week. He is alert oriented respirations regular nonlabored. He does state he is very nauseated. I have ordered him labs Zofran and IV fluids. I have greeted and performed a rapid initial assessment of this patient. A comprehensive ED assessment and evaluation of the patient, analysis of test results and completion of medical decision making process will be conducted by an additional ED providers. TRAVEL OUTSIDE OF THE [place] IN LAST 30 DAYS: No - Related Data Allergies/Adverse Reactions: penicillin V potassium [From Pen-Vee K] Allergy (Mild, Verified 09/21/19 17:36) unsure Sulfa (Sulfonamide Antibiotics) Allergy (Verified 09/21/19 17:36) unsure Past Medical History - Past Medical History Cardiac Medical History: Reports: Hx Hypertension Pulmonary Medical History: Reports: Hx Bronchitis, Hx COPD Renal/ Medical History: Denies: Hx Peritoneal Dialysis Musculoskeltal Medical History: Denies Hx Arthritis, Denies Hx Gout Psychiatric Medical History: Reports: Hx Bipolar Disorder, Hx Schizoaffective Disorder Traumatic Medical History: Reports: Hx Fractures - right ankle 2 months ago Past Surgical History: Reports: Hx Kidney (Renal Surgery) - KIDNEY BIOPSY - Immunizations Immunizations up to date: Yes Hx Diphtheria, Pertussis, Tetanus Vaccination: Yes Physical Exam - Vital signs Vitals: Temp Pulse Resp BP Pulse Ox 99.1 F 86 20 152/95 H 97 10/19/20 12:10 10/19/20 12:10 10/19/20 12:10 10/19/20 12:10 10/19/20 12:10 Course - Vital Signs Vital signs: Temp Pulse Resp BP Pulse Ox 99.1 F 86 20 152/95 H 97 10/19/20 12:10 10/19/20 12:10 10/19/20 12:10 10/19/20 12:10 10/19/20 12:10 Doctor's Discharge - Discharge Referrals: [facility] [Primary Care Provider] - Follow up as needed
[2020-10-19] MEDS ORDERED: METOCLOPRAMIDE HCL INJ/PF 10 MG/2 ML SDV IV ONE (14:26)
[2020-10-19 14:32] LABS: ABSOLUTE BASOPHILS # (AUTO) 0.1 10^3/uL (0.0-0.2); ABSOLUTE EOSINOPHILS # (AUTO) 0.1 10^3/uL (0.0-0.6); ABSOLUTE LYMPHOCYTES (AUTO) 1.7 10^3/uL (0.5-4.7); ABSOLUTE MONOCYTES (AUTO) 0.6 10^3/uL (0.1-1.4); BASOPHILS % (AUTO) 1.3 % (0-2); EOSINOPHILS % (AUTO) 0.6 % (0-6); HEMATOCRIT 51.6 % (37.9-51.0); HEMOGLOBIN 17.5 g/dL (13.5-17.0); LYMPHOCYTES % (AUTO) 18.4 % (13-45); MEAN CORPUSCULAR HGB CONC 33.8 g/dL (32.0-36.0); MEAN CORPUSCULAR VOLUME 86 fl (80-97); MONOCYTES % (AUTO) 6.1 % (3-13); PLATELET COUNT 331 10^3/uL (150-450); RED BLOOD COUNT 6.01 10^6/uL (4.35-5.55); RED CELL DISTRIBUTION WIDTH 13.9 % (11.5-14.0); SEGMENTED NEUTROPHILS % (AUTO) 73.6 % (42-78); TOTAL CELLS COUNTED % (AUTO) 100 %; WHITE BLOOD COUNT 9.4 10^3/uL (4.0-10.5)
--- NOTE | 2020-10-19 14:52 | ER Document Report ---
ED Medical Screen (RME) - General Chief Complaint: High Blood Pressure Stated Complaint: HIGH BLOOD PRESSURE Time Seen by Provider: 10/19/20 12:13 Primary Care Provider: MONIKA GEE [Primary Care Provider] - Follow up as needed TRAVEL OUTSIDE OF THE [place] IN LAST 30 DAYS: No - Related Data Allergies/Adverse Reactions: penicillin V potassium [From Pen-Vee K] Allergy (Mild, Verified 09/21/19 17:36) unsure Sulfa (Sulfonamide Antibiotics) Allergy (Verified 09/21/19 17:36) unsure Past Medical History - Past Medical History Cardiac Medical History: Reports: Hx Hypertension Pulmonary Medical History: Reports: Hx Bronchitis, Hx COPD Renal/ Medical History: Denies: Hx Peritoneal Dialysis Musculoskeltal Medical History: Denies Hx Arthritis, Denies Hx Gout Psychiatric Medical History: Reports: Hx Bipolar Disorder, Hx Schizoaffective Disorder Traumatic Medical History: Reports: Hx Fractures - right ankle 2 months ago Past Surgical History: Reports: Hx Kidney (Renal Surgery) - KIDNEY BIOPSY - Immunizations Immunizations up to date: Yes Hx Diphtheria, Pertussis, Tetanus Vaccination: Yes Physical Exam - Vital signs Vitals: Temp Pulse Resp BP Pulse Ox 99.1 F 86 20 152/95 H 97 10/19/20 12:10 10/19/20 12:10 10/19/20 12:10 10/19/20 12:10 10/19/20 12:10 Course - Vital Signs Vital signs: Temp Pulse Resp BP Pulse Ox 99.1 F 86 20 152/95 H 97 10/19/20 12:10 10/19/20 12:10 10/19/20 12:10 10/19/20 12:10 10/19/20 12:10 - Laboratory Results Result Diagrams: 10/19/20 14:14 10/19/20 14:14 Laboratory Results Interpreted: 10/19/20 14:14 RBC 6.01 H Hgb 17.5 H Hct 51.6 H Procedures - Additional Procedures IV insertion Notes: 10/19/20 14:51 Ultrasound-guided right sided deep brachial IV. Double tourniquet prepped in usual fashion with chlorhexidine. Sterile working used. Probe was sterilized. 20-gauge IV inserted under dynamic ultrasound guidance, flash, flushed, secured. Doctor's Discharge - Discharge Referrals: [facility] [Primary Care Provider] - Follow up as needed
[2020-10-19 14:53] LABS: ALBUMIN 4.7 g/dL (3.5-5.0); ALKALINE PHOSPHATASE 94 U/L (38-126); ANION GAP 11 (5-19); ASPARTATE AMINO TRANSFERASE 49 U/L (17-59); BILIRUBIN,DIRECT 0.4 mg/dL (0.0-0.4); BLOOD UREA NITROGEN 8 mg/dL (7-20); CALCIUM 10.4 mg/dL (8.4-10.2); CARBON DIOXIDE 26 mmol/L (22-30); CHLORIDE 105 mmol/L (98-107); GLUCOSE 103 mg/dL (75-110); POTASSIUM 4.6 mmol/L (3.6-5.0); TOTAL PROTEIN 10.5 g/dL (6.3-8.2)
--- NOTE | 2020-10-19 16:28 | RADIOLOGY REPORT (SQ) ---
EXAM DESCRIPTION: CT ABD/PELVIS WITH IV ONLY IMAGES COMPLETED DATE/TIME: 10/19/2020 4:10 pm REASON FOR STUDY: vomit/diffuse pain COMPARISON: 09/22/2019 TECHNIQUE: CT scan of the abdomen and pelvis performed using helical scanning technique with dynamic intravenous contrast injection. No oral contrast. Images reviewed with lung, soft tissue, and bone windows. Reconstructed coronal and sagittal MPR images reviewed. Delayed images for evaluation of the urinary system also acquired. All images stored on PACS. All CT scanners at this facility use dose modulation, iterative reconstruction, and/or weight based d osing when appropriate to reduce radiation dose to as low as reasonably achievable (ALARA). [facility]: Dose Right [facility]: CareDose [facility]: Dose Right [facility]: Teradose 4D [facility]: [place] CONTRAST TYPE AND DOSE: contrast/concentration: Isovue 350.00 mmol/ml; Total Contrast Delivered: 100 .0 ml; Total Saline Delivered: 63.5 ml RENAL FUNCTION: None required. The patient is less than 50 years old. RADIATION DOSE: CT Rad equipment meets quality standard of care and radiation dose reduction techniq ues were employed. CTDIvol: 15.9 - 19.9 mGy. DLP: 2137 mGy-cm.. LIMITATIONS: None. FINDINGS: LOWER CHEST: No significant findings. No nodules or infiltrates. LIVER: Normal size. No masses. No dilated ducts. SPLEEN: Normal size. No focal lesions. PANCREAS: No masses. No significant calcifications. No adjacent inflammation or peripancreatic fluid collections. Pancreatic duct not dilated. GALLBLADDER: No identified stones by CT criteria. No inflammatory changes to suggest cholecystitis. ADRENAL GLANDS: No significant masses or asymmetry. RIGHT KIDNEY AND URETER: No definite solid masses. Stable 15 mm interpolar cyst. No significant ca lcifications. No hydronephrosis or hydroureter. LEFT KIDNEY AND URETER: No solid masses. No significant calcifications. No hydronephrosis or hydr oureter. AORTA AND VESSELS: No aneurysm. No dissection. Renal arteries, SMA, celiac without stenosis. Retroao rtic left renal vein. RETROPERITONEUM: No retroperitoneal adenopathy, hemorrhage or masses. BOWEL AND PERITONEAL CAVITY: No masses or inflammatory changes. No free fluid or peritoneal masses. APPENDIX: Normal. PELVIS: No mass. No free fluid. Normal bladder. ABDOMINAL WALL: No masses. No hernias. BONES: No significant or acute findings. OTHER: No other significant finding. IMPRESSION: No evidence of intestinal obstruction or other acute intra-abdominal/pelvic process. TECHNICAL DOCUMENTATION: JOB ID: [id number] Quality ID # [id number]: Final reports with documentation of one or more dose reduction techniques (e.g., Au tomated exposure control, adjustment of the mA and/or kV according to patient size, use of iterative reconstruction technique) 2010 [employer]- All Rights Reserved Reading location - IP/workstation name: [email or web address]
--- NOTE | 2020-10-19 17:47 | ER Document Report ---
ED General - General Chief Complaint: High Blood Pressure Stated Complaint: HIGH BLOOD PRESSURE Time Seen by Provider: 10/19/20 12:13 Primary Care Provider: [facility] [NO LOCAL MD] - Follow up tomorrow Mode of Arrival: Wheelchair Information source: Patient TRAVEL OUTSIDE OF THE [place] IN LAST 30 DAYS: No - HPI Notes: Patient presents emergency department with a chief complaint of vomiting. States it was going on for proximally 2 days. Also the patient's sister states that he was claiming he could not smell or taste food yesterday. No known Covid exposures. Patient does use IV heroin. He last used on October 12 he states. Patient denies any significant pain. No diarrhea. No known fevers. Nothing appears to make the vomiting better or worse at this time. - Related Data Allergies/Adverse Reactions: penicillin V potassium [From Pen-Vee K] Allergy (Mild, Verified 09/21/19 17:36) unsure Sulfa (Sulfonamide Antibiotics) Allergy (Verified 09/21/19 17:36) unsure Past Medical History - General Information source: Parent - Social History Smoking Status: Never Smoker Frequency of alcohol use: None Drug Abuse: None Family History: Reviewed & Not Pertinent - Past Medical History Cardiac Medical History: Reports: Hx Hypertension Pulmonary Medical History: Reports: Hx Bronchitis, Hx COPD Renal/ Medical History: Denies: Hx Peritoneal Dialysis Musculoskeletal Medical History: Denies Hx Arthritis, Denies Hx Gout Psychiatric Medical History: Reports: Hx Bipolar Disorder, Hx Schizoaffective Disorder Traumatic Medical History: Reports: Hx Fractures - right ankle 2 months ago Past Surgical History: Reports: Hx Kidney (Renal Surgery) - KIDNEY BIOPSY - Immunizations Immunizations up to date: Yes Hx Diphtheria, Pertussis, Tetanus Vaccination: Yes Review of Systems - Review of Systems Constitutional: Chills, Malaise, Weakness Cardiovascular: denies: Chest pain, Palpitations Respiratory: denies: Cough, Short of breath -: Yes All other systems reviewed and negative Physical Exam - Vital signs Vitals: Temp Pulse Resp BP Pulse Ox 99.1 F 86 20 152/95 H 97 10/19/20 12:10 10/19/20 12:10 10/19/20 12:10 10/19/20 12:10 10/19/20 12:10 Interpretation: Hypertensive - General General appearance: Appears well, Alert - HEENT Head: Normocephalic, Atraumatic Eyes: Normal Pupils: PERRL - Respiratory Respiratory status: No respiratory distress Chest status: Nontender Breath sounds: Normal Chest palpation: Normal - Cardiovascular Rhythm: Regular Heart sounds: Normal auscultation Murmur: No - Abdominal Inspection: Normal Distension: No distension Bowel sounds: Normal Tenderness: Nontender Organomegaly: No organomegaly - Back Back: Normal, Nontender - Extremities General upper extremity: Normal inspection, Nontender, Normal color, Normal ROM, Normal temperature General lower extremity: Normal inspection, Nontender, Normal color, Normal ROM, Normal temperature, Normal weight bearing. No: Akshat's sign - Neurological [place] Coma Scale Eye Opening: Spontaneous Gem Coma Scale Verbal: Oriented [place] Coma Scale Motor: Obeys Commands Gem Coma Scale Total: 15 Speech: Normal Motor strength normal: LUE, RUE, LLE, RLE Sensory: Normal - Psychological Associated symptoms: Normal affect, Normal mood - Skin Skin Temperature: Warm Skin Moisture: Dry Skin Color: Normal Course - Re-evaluation Re-evalutation: 10/19/20 17:45 Patient presents with chief complaint of vomiting. He also was complaining of not having taste or smell yesterday. The work-up is consistent with a viral syndrome and some dehydration. The work-up is not consistent with anything surgical. Patient admits that he uses IV drugs. Therefore an occult bacteremia would also be of concern however patient does not have any evidence of occult bacteremia such as significant elevated white blood cell count, tachycardia, hypotension, or toxic appearance. Patient states he does feel better after fluids. Since patient was feeling better after fluids we gave the patient food and drink which he tolerated well. We also ambulated the patient and he ambulated well without assistance. 10/19/20 18:11 - Vital Signs Vital signs: Temp Pulse Resp BP Pulse Ox 99.1 F 86 20 152/95 H 97 10/19/20 12:10 10/19/20 12:10 10/19/20 12:10 10/19/20 12:10 10/19/20 12:10 - Laboratory Results Result Diagrams: 10/19/20 14:14 10/19/20 14:14 Laboratory Results Interpreted: 10/19/20 10/19/20 14:14 14:14 RBC 6.01 H Hgb 17.5 H Hct 51.6 H Calcium 10.4 H Total Protein 10.5 H Critical Laboratory Results Reviewed: No Critical Results - Radiology Results Critical Radiology Results Reviewed: No Critical Results Discharge - Discharge Clinical Impression: Dehydration, Person under investigation for COVID-19, Viral syndrome Vomiting Qualifiers: Vomiting type: bilious vomiting Nausea presence: with nausea Qualified Code(s): R11.14 - Bilious vomiting Condition: Stable Disposition: HOME, SELF-CARE Instructions: COVID-19 Guidance for Persons Under Investigation, Antinausea Med ication ([facility]), Intravenous (IV) Fluids ([facility]), Reglan ([facility]), Viral Syndrome ([facility]), Vomiting ([facility]) Prescriptions: Metoclopramide HCl [Reglan 10 mg Tablet] 1 tab PO Q6 10 Days #25 tablet Forms: Return to Work Referrals: [facility] [NO LOCAL MD] - Follow up tomorrow
[2020-10-19 18:28] VITALS: BP 145/86
== END 2020-10-19 18:27 | disposition home or self-care (01) ==
LOC: ER 12:01
DX: R11.14 Bilious vomiting (principal); E86.0 Dehydration; R53.81 Other malaise; R53.1 Weakness; B34.9 Viral infection, unspecified; I10 Essential (primary) hypertension; F19.10 Other psychoactive substance abuse, uncomplicated; Z88.0 Allergy status to penicillin; Z88.2 Allergy status to sulfonamides; J44.9 Chronic obstructive pulmonary disease, unspecified; Z20.828 Contact with and (suspected) exposure to other viral communicable diseases
CPT/HCPCS: 99285; 96361; 96374; 36415; 87040; 83605; 83690; 85025; 87635; 87077; 80053; 87150 ×26; 74177; S0119; J2765; J7030; C9803